=== PATIENT | female | born 1995 | race Caucasian/White ===

== ENCOUNTER 2023-03-02 13:18 | Outpatient (CLI) | payer BC | END 2023-03-02 13:19 | disposition home or self-care (01) | LOC: MRI 13:18 | PROVIDERS: ATTEND Dermatology | DX: N83.8 Other noninflammatory disorders of ovary, fallopian tube and broad ligament (principal); G96.191 Perineural cyst | CPT/HCPCS: 72195 ==

== ENCOUNTER 2023-12-20 07:45 | Outpatient (CLI) | payer BC | END 2023-12-20 07:46 | disposition home or self-care (01) | LOC: ULT 07:45 | PROVIDERS: ATTEND Internal Medicine Cardiovascular Disease | DX: I80.9 Phlebitis and thrombophlebitis of unspecified site (principal); I82.612 Acute embolism and thrombosis of superficial veins of left upper extremity; R93.6 Abnormal findings on diagnostic imaging of limbs ==